=== PATIENT | male | born 1930 | race Caucasian/White ===

== ENCOUNTER 2016-07-14 16:58 | Emergency (ER) | payer OTHER ==
--- NOTE | 2016-07-14 19:47 | ED NURSING NOTES ---
Clinical Report - Nurses [place] [address] [place] [address] 07/14/2016 16:59 [id number] Triage time 17:17. Acuity: LEVEL 3. Chief Complaint: FATIGUE (AGITATED after 2 BM's today). DUANE COMA SCORE: Duane Coma Scale: 15- eyes open spontaneously (4); best verbal response- oriented x 4 (5); best motor response- obeys commands (6). --17:31 Tayler Norris R.N. 17:17 07/14/16. BP: 140/86. HR: 91. RR: 18. O2 saturation: 96%. Pain level now: 4/10. --17:31 Tayler Norris R.N. 17:07/14/16. Temp: 97.2 F (oral). --23:55 Maury Wise R.N. Weight: 74.8 kg stated. Height/Length: 71 inches Per Patient. BMI: 23. --17:23 Tayler Norris R.N. Medications Acetaminophen Oral 325 mg, daily. --17:26 Tayler Norris R.N. Cholecalciferol Oral (Tablet 1000 unit) 2 tablets, daily. --17:26 Tayler Norris R.N. Finasteride Oral (Tablet 5 mg) 1 tablet, daily. --17:27 Tayler Norris R.N. Hydrochlorothiazide Oral 25 mg, daily. --17:27 Tayler Norris R.N. Magnesium Oral 27 mg, daily. --17:28 Tayler Norris R.N. Warfarin Sodium Oral 7.5 mg, daily. --17:28 Tayler Norris R.N. Amiodarone HCL Oral (Tablet 200 mg), daily. --17:29 Tayler Norris R.N. Lisinopril Oral 2.5 mg, daily. --17:30 Tayler Norris R.N. Metoprolol Succinate ER Oral (Tablet Extended Release 24 Hour 50 mg), bid. --17:30 Tayler Norris R.N. Medication/allergy information source: other. --17:31 Tayler Norris R.N. Allergies No Known Drug Allergy. --17:19 Tayler Norris R.N. History Arrived by private vehicle. Historian: patient. Accompanied by friend. Primary physician (Moe). This started today. Onset. (at 1400). ( denies pain). SOCIAL HX: Smoker- current status unknown (no). No alcohol use or drug use. LEARNING NEEDS ASSESSMENT: The learning needs assessment revealed no barriers. FALL RISK ASSESSMENT: Fall risk assessment completed. Risk factors identified include patient age greater than 65 years and impairment of mobility. FUNCTIONAL ASSESSMENT: Functional assessment performed: requires assistance with the activities of daily living; uses walker- this mobility impairment is an ongoing problem. lives alone. --17:31 Tayler Norris R.N. PROBLEMS: Anemia. Abnormal Liver Function Test. Anxiety Reaction. Leukocytosis. Near Syncope. Ventricular Tachycardia. Hypomagnesemia. Dehydration. Leukemia. Atrial Fibrillation. URI. Pharyngitis. Chronic lymphoid leukemia, disease. Benign Prostatic Hypertrophy. Hypertension. Congestive Heart Failure. --17:20 Tayler Norris R.N. Hypoglycemia [RuleOut]. --17:20 Tayler Norris R.N. ADDITIONAL SURGERIES: Hernia Repair. --17:20 Tayler Norris R.N. Assessment GENERAL / NEURO / PSYCH: Alert. Oriented X 4. Appears in no acute distress. Patient appears calm and cooperative. RESPIRATORY: Respirations not labored. SKIN: Skin is warm and dry. --17:31 Tayler Norris R.N. Interventions ID band on patient. To waiting room. --17:31 Tayler Norris R.N. PHYSICAL ASSESSMENT Ambulatory to room. GENERAL / NEURO / PSYCH: Alert. Oriented X 4. HEENT: No facial asymmetry noted. Mucous membranes are pink. RESPIRATORY: Respirations not labored. Wheezing present. CVS: Cardiac rhythm: atrial fibrillation. GI / : Abdominal distention (abominal hernia (chronic)). SKIN: Skin intact. Skin is warm and dry. Normal skin turgor. --18:06 Maury Wise R.N. NURSING PROGRESS NOTES color television console monitor, pulse oximeter and NIBP monitor placed on patient; color television console monitor- Lead II and V1; monitor alarms on. Patient gowned. Patient identifiers checked. Call light placed in reach. Side rails up x 2. Patient ready for evaluation- chart flagged and ED physician notified. --18:06 Maury Wise R.N. EKG time: (18:05). EKG was performed by a tech and shown to the ED physician. --18:35 DeangeloRahul mahoneyon 18:55 07/14/2016 Site #1 started via IV in the right forearm with an 20g angiocath, with aseptic technique and good blood return; one attempt. Blood drawn: rainbow set. Labeled in the presence of the patient and sent to the lab. Saline lock flushed with 10 mL saline. --18:55 Darinel Robles R.N. 19:00 07/14/16. Patient ID band checked for patient name, birthdate and medical record number: patient confirmed. Instructions provided to collect clean catch urine and patient verbalized understanding. Clean catch urine collected with return of yellow-colored clear urine; odor is normal; sample sent to lab for urinalysis and culture. Specimen labeled in the presence of the patient. --19:08 Maury Wise R.N. 19:30 07/14/16. BP: 128/66. HR: 75. RR: 16. O2 saturation: 97% on room air. Pain level now: 0/10. --23:54 Maury Wise R.N. DISPOSITION / DISCHARGE 19:55 07/14/16. BP: 101/76. HR: 76. RR: 16. O2 saturation: 97% on room air. Temp: 98.7 F (oral). Pain level now: 0/10. --23:50 Maury Wise R.N. Departure time: 2004. --23:50 Maury Wise R.N. 20:05. No learning barriers present. Discharge instructions provided and reviewed with the patient. Reviewed medication(s) (contiue your usual medications. Prescription given to pt). Reviewed referral to family practice for followup. Family and construction safety consultant verbalized understanding. Written instructions provided in Mongolian. The patient was discharged by the physician. He was discharged home and accompanied by construction safety consultant. He left the Emergency Department ambulatory and via private vehicle. [employer] Inker Machine driving. --23:52 Maury Wise R.N. Locked/Released at 07/14/2016 23:56 by Maury Wise R.N.
--- NOTE | 2016-07-14 19:47 | ED ORDER SUMMARY ---
..... Patient: FRANCISCA CARRANZA OrderSheet [facility] VisitID: [id number] [place], [place] [id number] 86y, M Registration Date/Time: 07/14/2016 ORDER SHEET Weight: 74.8 kg (stated) Allergies: No Known Drug Allergy GENERAL ORDERS: Chest 1V Urgent (18:33 07/14/2016 Aura Suazo) (Ack 18:35 LNations ER Tech1) (18:48 LNations ER Tech1) Bolt Loader (Continuous) (near syncope) (18:33 07/14/2016 Aura Suazo) (Ack 18:35 LNations ER Tech1) (18:55 LWhalen R.N.) CBC w Diff Urgent (18:07/14/2016 Aura Suazo) (Ack 18:35 LNations ER Tech1) (18:55 LWhalen R.N.) CMP Urgent (18:07/14/2016 Aura Suazo) (Ack 18:35 LNations ER Tech1) (18:55 LWhalen R.N.) UA-Culture if indicated Urgent (18:33 07/14/2016 Aura Suazo) (Ack 18:35 LNations ER Tech1) (19:07 omanelli R.N.) PT with INR Urgent (18:07/14/2016 Aura Suazo) (Ack 18:35 LNations ER Tech1) (18:55 LWhalen R.N.) Troponin-I Urgent (18:07/14/2016 Aura Suazo) (Ack 18:35 LNations ER Tech1) (18:55 LWhalen R.N.) TSH Urgent (18:33 07/14/2016 Aura Suazo) (Ack 18:35 LNations ER Tech1) (18:55 LWhalen R.N.) Pulse oximeter (18:33 07/14/2016 Aura Suazo) (Ack 18:35 LNations ER Tech1) (18:55 LWhalen R.N.) EKG - ER Stat (18:07/14/2016 Aura Suazo) (Ack 18:35 LNations ER Tech1) (18:35 LTapper) MEDICATION ORDERS: IV FLUIDS: IV Saline Lock (18:33 07/14/2016 Aura Suazo) (18:55 Ryan Molina) ORDER SHEET NOTES: [Electronically signed by Maury Wise R.N. (23:56 07/14/2016)] [Electronically signed by Jamel Alcazar Dr. (03:06 07/22/2016)] [Electronically locked/signed by Maury Wise R.N. (23:56 07/14/2016)]
--- NOTE | 2016-07-14 19:47 | ED CLINICAL REPORT ---
Clinical Report - Physicians/Mid Levels [facility] [address] [place] [address] 07/14/2016 16:59 Patient: FRANCISCA CARRANZA Arrived- By private vehicle. Historian- patient. HISTORY OF PRESENT ILLNESS Is no longer unconscious. He has recovered. Chief Complaint: NEAR-SYNCOPE. This occurred today. It was abrupt in onset and has been intermittent. Patient was last known well (around noon today). Event was not witnessed. The patient had preceding symptoms of light-headedness. The event occurred during exertion (having large bowel movement). The patient felt faint. The episode lasted hours. No injuries noted. He currently has generalized weakness. (uses hands to measure out the size of the bowel movement. Describes a 20 x 10 cm sized BM. reports no shortness of breath). Similar symptoms previously: None. Recent medical care: Not recently seen/assessed. REVIEW OF SYSTEMS No headache, chest pain, abdominal pain, vomiting or diarrhea. No black stools, numbness, bloody stools, fever or skin rash. All systems otherwise negative, except as recorded above. PAST HISTORY See nurses notes. SOCIAL HISTORY Never smoker. No alcohol use or drug use. No recent travel. Is a local resident. ADDITIONAL NOTES The nursing notes have been reviewed. PHYSICAL EXAM Vital Signs: 07/14/2016 17:17 BP: 140/86. HR: 91. RR: 18. O2 saturation: 96%. Pain level now: 4/10. Blood pressure normal. Oxygen saturation normal. Appearance: Alert. No acute distress. Eyes: Pupils equal, round and reactive to light. No nystagmus. Extraocular movements normal. ENT: Normal ENT inspection. TM's normal. Moist mucous membranes. Pharynx normal. Neck: Normal inspection. Neck supple. CVS: Normal heart rate and rhythm. Heart sounds normal. Pulses normal. Respiratory: No respiratory distress. Breath sounds normal. Abdomen: Soft and nontender. No organomegaly. Skin: Skin warm and dry. Normal skin color. No rash. Normal skin turgor. Extremities: Extremities exhibit normal ROM. No lower extremity edema. Neuro: Alert. Oriented X 3. Mood/affect normal. Cranial nerves normal (as tested). No cerebellar findings. No motor deficit. No sensory deficit. Reflexes normal. LABS, X-RAYS, AND EKG EKG: EKG time: (1804). No acute ischemia. Rate: 75. Atrial fibrillation. Abnormal P waves. RBBB. Normal ST and T waves. Prolonged QT (472). Prolonged QTc (527). EKG unchanged when compared with prior EKG. The study has been interpreted contemporaneously. The study has been independently viewed by me. The EKG appears to be a good tracing. Interpretation time: 1809. Chest X-ray: Normal lung markings present. Normal heart size. Mediastinum normal. No infiltrate. No fracture. No pneumothorax. (elevated right hemidiaphragm. Unchanged from prior x-ray noted on April 17, 2016.). Views: PA. The X-rays were independently viewed by me and interpreted contemporaneously by me. Laboratory Tests: UA-Culture if indicated: (LANDON: 07/14/2016 19:05) ( [facility] 07/14/2016 19:27) Final results Test Result Flag Units (Reference) URINE COLOR YELLOW URINE APPEARANCE CLEAR URINE GLUCOSE NEGATIVE (NEGATIVE) URINE BILIRUBIN NEGATIVE (NEGATIVE) URINE KETONE NEGATIVE (NEGATIVE) URINE SPECIFIC GRAVITY 1.010 (1.010-1.030) URINE PH 7.0 (5.0-8.0) URINE PROTEIN NEGATIVE (NEGATIVE) URINE UROBILINOGEN 0.2 EU/dL (0.2-1.0) URINE NITRITE NEGATIVE (NEGATIVE) URINE BLOOD NEGATIVE (NEGATIVE) URINE LEUK ESTERASE NEGATIVE (NEGATIVE) URINE RBC NONE SEEN rbc/hpf (0-1) URINE WBC RARE wbc/hpf (0-1) URINE EPITHELIAL CELLS RARE EPI/hpf (0-5) URINE BACTERIA NONE SEEN (NONE SEEN) URINE COMMENT CULT NOT INDICATED URINE CULTURES ARE SET-UP BASED ON THE FOLLOWING CRITERIA:POSITIVE NITRITEPOSITIVE LEUKOCYTE ESTERASEGREATER THAN 10 WHITE BLOOD CELLSMODERATE (2+) OR GREATER BACTERIA CBC w Diff: ([place]: 07/14/2016 18:50) ( [facility] 07/14[facility] 19:10) IP Test Result Flag Units (Reference) WHITE BLOOD COUNT 13.5 H K/uL (4.5-11.5) RED BLOOD COUNT 4.24 L M/uL (4.50-5.90) HEMOGLOBIN 13.1 L gm/dL (13.5-17.5) HEMATOCRIT 40.4 L % (41.0-53.0) MEAN CELL VOLUME 95 fL (80-100) MEAN CORPUSCULAR HGB 31 pg (26-34) MEAN CORPUSCULAR HGB CONC 33 g/dL (31-37) RED CELL DISTRIBUTION WIDTH 14.9 H % (11.6-14.8) PLATELET COUNT 244 K/uL (150-400) PT with INR: (LANDON: 07/14/2016 18:50) ( [facility] 07/14/2016 19:24) Final results Test Result Flag Units (Reference) INR 2.9 H (0.8-1.2) Low Intensity Therapy: INR 1.5-2.0 PT range 18.5-23.1Mod.Intensity Therapy: INR 2.0-3.0 PT range 23.1-31.5High Intensity Therapy: INR 2.5-3.5 PT range 27.4-35.5High Intensity Therapy 2: INR 3.0-4.0 PT range 31.5-39.3 CMP: (LANDON: 07/14/2016 18:50) ( [facility] 07/14/2016 19:31) Final results Test Result Flag Units (Reference) GLUCOSE 104 mg/dL (70-110) BUN 21 H mg/dL (7-18) CREATININE 1.1 mg/dL (0.6-1.3) Estimated GFR >60 mL/min Estimated GFR- >60 mL/min Note: Persistent reduction over 3 months in eGFR<60 mL/min/1.73 m2 defines CKD. Patients with eGFR values>=60 mL/min/1.73 m2 may also have CKD if evidence ofpersistent proteinuria. Additional information may be foundat www.kidney.org. SODIUM 137 mmol/L (136-145) POTASSIUM 4.0 mmol/L (3.5-5.1) CHLORIDE 100 mmol/L (98-107) CARBON DIOXIDE 30 mmol/L (21-32) CALCIUM 8.2 L mg/dL (8.5-10.1) TOTAL PROTEIN 6.5 g/dL (6.4-8.2) ALBUMIN 3.4 g/dL (3.3-5.0) BILIRUBIN, TOTAL 0.9 mg/dL (0.0-1.0) ALKALINE PHOSPHATASE 75 U/L (46-116) AST (SGOT) 45 H U/L (15-37) ALT (SGPT) 65 U/L (12-78) TROPONIN I <0.05 L ng/mL (0.00-1.5) TROPONIN REFERENCE RANGE:<0.1 NEGATIVE0.1-1.5 INDETERMINANT>1.5 POSITIVE THYROID STIMULATING HORMONE 3.360 uIU/mL (0.30-3.74) . PROGRESS AND PROCEDURES Course of Care: the patient is a pleasant 86-year-old male with past medical history significant for CLL presenting for evaluation of what he describes as a near syncopal event. Likely vasovagal in nature as the patient was having a large bowel movement when this happened. Patient reports that he's been having some bowel problems for the past 2 years off-and-on. Patient reports that the last bowel movement prior to today was about 2 days ago. Patient voiced no other symptoms such as a shortness of breath, cough, nausea, vomiting, or focal weakness. Patient will be evaluated with the [place] syncopal be role. Prior EKG was noted on his last visit. We will compare the prior EKG to today's EKG. Patient is otherwise resting in bed and in no acute distress. Patient is nontoxic. Workup does not show any acute abnormalities. Chest x-ray is unchanged with a elevated right-sided hemidiaphragm. No consolidations noted. EKG is unchanged from prior. No signs of urinary tract infection. Blood count is otherwise unremarkable. Patient has a history of CLL. This was noted on patient's complete blood cell count. Electrolytes otherwise unremarkable. Because of the patient's presenting history and sequence of events, feel the patient had a vasovagal syncopal be. Of note, troponin is also negative. Troponin was obtained approximately 8 hours after initial onset of symptoms. Patient is also started to feel better. In addition, patient has not had any shortness of breath or chest pain. The patient had acute myocardial infarction or pulmonary embolism. Do not feel patient is septic at this time. Conservative management will be sought with stool softeners and follow up with his primary care doctor. Had long discussion with his his situation at home. Patient reports that he does live at home however has a niece that can check up on him. Patient also goes into how he was a in the [place] war her and had visited [place]. We discussed Heritage and a [place]ran culture. Patient is in good spirits. Do not fill patient is admitted hospital or require further emergency department workup/evaluation. discussed the patient workup, diagnosis, home care, follow-up, and return precautions. All questions answered. The patient expressed understanding of these instructions and was agreeable to them. Disposition: Discharged. Condition: good. CLINICAL IMPRESSION Near syncope .12 lead EKG performed. 07/14/2016 17:17 BP: 140/86. HR: 91. RR: 18. O2 saturation: 96%. Pain level now: 4/10. Blood pressure normal. Oxygen saturation normal. Constipation (acute). INSTRUCTIONS Warnings: GENERAL WARNINGS: Return or contact your physician immediately if your condition worsens or changes unexpectedly, if not improving as expected, or if other problems arise. SPECIFICALLY, return if you develop chest pain, fluttering sensation in your chest, lightheadedness, fainting, numbness, weakness or extreme fatigue. Prescription Medications: Miralax: take 1 measuring cupful supplied mixed in 8 ounces juice at bedtime as needed for constipation. Dispense twenty-six (26) ounce bottle. No refills. Substitution is permissible. Follow-up: Return to the emergency department as needed. Follow up with your doctor in three days. Reason for referral: recheck today's concerns. Summary of care provided to patient via paper. Screening today revealed the patient's blood pressure to be in the normal range. The patient should follow up with a primary care provider for blood pressure management. Understanding of the discharge instructions verbalized by patient. (Electronically signed by Jamel Alcazar Dr. 07/22/2016 3:06)
--- NOTE | 2016-07-14 19:47 | ED NURSING NOTES ---
Clinical Report - Nurses [place] [address] [place] [address] 07/14/2016 16:59 [id number] Triage time 17:17. Acuity: LEVEL 3. Chief Complaint: FATIGUE (AGITATED after 2 BM's today). DUANE COMA SCORE: Duane Coma Scale: 15- eyes open spontaneously (4); best verbal response- oriented x 4 (5); best motor response- obeys commands (6). --17:31 Tayler Norris R.N. 17:17 07/14/16. BP: 140/86. HR: 91. RR: 18. O2 saturation: 96%. Pain level now: 4/10. --17:31 Tayler Norris R.N. 17:07/14/16. Temp: 97.2 F (oral). --23:55 Maury Wise R.N. Weight: 74.8 kg stated. Height/Length: 71 inches Per Patient. BMI: 23. --17:23 Tayler Norris R.N. Medications Acetaminophen Oral 325 mg, daily. --17:26 Tayler Norris R.N. Cholecalciferol Oral (Tablet 1000 unit) 2 tablets, daily. --17:26 Tayler Norris R.N. Finasteride Oral (Tablet 5 mg) 1 tablet, daily. --17:27 Tayler Norris R.N. Hydrochlorothiazide Oral 25 mg, daily. --17:27 Tayler Norris R.N. Magnesium Oral 27 mg, daily. --17:28 Tayler Norris R.N. Warfarin Sodium Oral 7.5 mg, daily. --17:28 Tayler Norris R.N. Amiodarone HCL Oral (Tablet 200 mg), daily. --17:29 Tayler Norris R.N. Lisinopril Oral 2.5 mg, daily. --17:30 Tayler Norris R.N. Metoprolol Succinate ER Oral (Tablet Extended Release 24 Hour 50 mg), bid. --17:30 Tayler Norris R.N. Medication/allergy information source: other. --17:31 Tayler Norris R.N. Allergies No Known Drug Allergy. --17:19 Tayler Norris R.N. History Arrived by private vehicle. Historian: patient. Accompanied by friend. Primary physician (Moe). This started today. Onset. (at 1400). ( denies pain). SOCIAL HX: Smoker- current status unknown (no). No alcohol use or drug use. LEARNING NEEDS ASSESSMENT: The learning needs assessment revealed no barriers. FALL RISK ASSESSMENT: Fall risk assessment completed. Risk factors identified include patient age greater than 65 years and impairment of mobility. FUNCTIONAL ASSESSMENT: Functional assessment performed: requires assistance with the activities of daily living; uses walker- this mobility impairment is an ongoing problem. lives alone. --17:31 Tayler Norris R.N. PROBLEMS: Anemia. Abnormal Liver Function Test. Anxiety Reaction. Leukocytosis. Near Syncope. Ventricular Tachycardia. Hypomagnesemia. Dehydration. Leukemia. Atrial Fibrillation. URI. Pharyngitis. Chronic lymphoid leukemia, disease. Benign Prostatic Hypertrophy. Hypertension. Congestive Heart Failure. --17:20 Tayler Norris R.N. Hypoglycemia [RuleOut]. --17:20 Tayler Norris R.N. ADDITIONAL SURGERIES: Hernia Repair. --17:20 Tayler Norris R.N. Assessment GENERAL / NEURO / PSYCH: Alert. Oriented X 4. Appears in no acute distress. Patient appears calm and cooperative. RESPIRATORY: Respirations not labored. SKIN: Skin is warm and dry. --17:31 Tayler Norris R.N. Interventions ID band on patient. To waiting room. --17:31 Tayler Norris R.N. PHYSICAL ASSESSMENT Ambulatory to room. GENERAL / NEURO / PSYCH: Alert. Oriented X 4. HEENT: No facial asymmetry noted. Mucous membranes are pink. RESPIRATORY: Respirations not labored. Wheezing present. CVS: Cardiac rhythm: atrial fibrillation. GI / : Abdominal distention (abominal hernia (chronic)). SKIN: Skin intact. Skin is warm and dry. Normal skin turgor. --18:06 Maury Wsie R.N. NURSING PROGRESS NOTES cash applications manager, pulse oximeter and NIBP monitor placed on patient; manager cardiac cath- Lead II and V1; monitor alarms on. Patient gowned. Patient identifiers checked. Call light placed in reach. Side rails up x 2. Patient ready for evaluation- chart flagged and ED physician notified. --18:06 Maury Wise R.N. EKG time: (18:05). EKG was performed by a tech and shown to the ED physician. --18:35 DeangeloRahul mahoneyon 18:55 07/14/2016 Site #1 started via IV in the right forearm with an 20g angiocath, with aseptic technique and good blood return; one attempt. Blood drawn: rainbow set. Labeled in the presence of the patient and sent to the lab. Saline lock flushed with 10 mL saline. --18:55 Darinel Robles R.N. 19:00 07/14/16. Patient ID band checked for patient name, birthdate and medical record number: patient confirmed. Instructions provided to collect clean catch urine and patient verbalized understanding. Clean catch urine collected with return of yellow-colored clear urine; odor is normal; sample sent to lab for urinalysis and culture. Specimen labeled in the presence of the patient. --19:08 Maury Wise R.N. 19:30 07/14/16. BP: 128/66. HR: 75. RR: 16. O2 saturation: 97% on room air. Pain level now: 0/10. --23:54 Maury Wise R.N. DISPOSITION / DISCHARGE 19:55 07/14/16. BP: 101/76. HR: 76. RR: 16. O2 saturation: 97% on room air. Temp: 98.7 F (oral). Pain level now: 0/10. --23:50 Maury Wise R.N. Departure time: 2004. --23:50 Maury Wise R.N. 20:05. No learning barriers present. Discharge instructions provided and reviewed with the patient. Reviewed medication(s) (contiue your usual medications. Prescription given to pt). Reviewed referral to family practice for followup. Family and rag grader verbalized understanding. Written instructions provided in Syriac. The patient was discharged by the physician. He was discharged home and accompanied by rag grader. He left the Emergency Department ambulatory and via private vehicle. Tug Master driving. --23:52 Maury Wise R.N. Locked/Released at 07/14/2016 23:56 by Maury Wise R.N.
--- NOTE | 2016-07-14 19:47 | ED ORDER SUMMARY ---
..... Patient: FRANCISCA CARRANZA OrderSheet [facility] VisitID: [id number] [place], [place] [id number] 86y, M Registration Date/Time: 07/14/2016 ORDER SHEET Weight: 74.8 kg (stated) Allergies: No Known Drug Allergy GENERAL ORDERS: Chest 1V Urgent (18:33 07/14/2016 Auar Suazo) (Ack 18:35 LNations ER Tech1) (18:48 LNations ER Tech1) Activities Counselor (Continuous) (near syncope) (18:33 07/14/2016 Aura Suazo) (Ack 18:35 LNations ER Tech1) (18:55 LWhalen R.N.) CBC w Diff Urgent (18:07/14/2016 Aura Suazo) (Ack 18:35 LNations ER Tech1) (18:55 LWhalen R.N.) CMP Urgent (18:07/14/2016 Aura Suazo) (Ack 18:35 LNations ER Tech1) (18:55 LWhalen R.N.) UA-Culture if indicated Urgent (18:33 07/14/2016 Aura Suazo) (Ack 18:35 LNations ER Tech1) (19:07 omanelli R.N.) PT with INR Urgent (18:07/14/2016 Aura Suazo) (Ack 18:35 LNations ER Tech1) (18:55 LWhalen R.N.) Troponin-I Urgent (18:07/14/2016 Aura Suazo) (Ack 18:35 LNations ER Tech1) (18:55 LWhalen R.N.) TSH Urgent (18:33 07/14/2016 Aura Suazo) (Ack 18:35 LNations ER Tech1) (18:55 LWhalen R.N.) Pulse oximeter (18:33 07/14/2016 Aura Suazo) (Ack 18:35 LNations ER Tech1) (18:55 LWhalen R.N.) EKG - ER Stat (18:07/14/2016 Aura Suazo) (Ack 18:35 LNations ER Tech1) (18:35 LTapper) MEDICATION ORDERS: IV FLUIDS: IV Saline Lock (18:33 07/14/2016 Aura Suazo) (18:55 Ryan Molina) ORDER SHEET NOTES: [Electronically signed by Maury Wise R.N. (23:56 07/14/2016)] [Electronically signed by Jamel Alcazar Dr. (03:06 07/22/2016)] [Electronically locked/signed by Maury Wise R.N. (23:56 07/14/2016)]
--- NOTE | 2016-07-14 22:28 | DIAGNOSTIC IMAGING REPORT ---
PROCEDURE: XR CHEST 1 VIEW INDICATION: NEAR SYNCOPE TECHNIQUE: Single view chest. 1850 hours COMPARISON: 04/17/2016 FINDINGS: Probably top normal sized heart with right cardiac border obscured by chronic right hemidiaphragm elevation. Atelectatic changes at the right lung base and scarring at the left base. No central vascular congestion. The visible lung escobar are otherwise clear without new consolidation. No pneumothorax. Intact osseous structures. IMPRESSION: 1. No acute process. 2. 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
--- NOTE | 2016-07-22 03:07 | ED MAR SUMMARY ---
..... Medication Administration Record [facility] [address] [place], [place] [id number] Patient: FRANCISCA CARRANZA Visit ID: [id number] 86y, M Weight: 74.8 kg Height/Length: 71 in BMI: 23 ALLERGIES: No Known Drug Allergy
--- NOTE | 2016-07-22 03:07 | ED MED RECONCILIATION SUMMARY ---
Patient: FRANCISCA CARRANZA Medication Reconciliation Report [facility] VisitID: [id number] [address] [place] [address] 86y, M Registration Date/Time: 07/14/2016 Weight: 74.8 kg Height/Length: 71 in. BMI: 23.0 ALLERGIES: No Known Drug Allergy The patient's Home Medications are listed below: THE FOLLOWING MEDICATIONS NEED TO BE RECONCILED: Acetaminophen Oral 325 mg, daily Amiodarone HCL Oral (200 mg), daily Cholecalciferol Oral (1000 unit) 2 tablets, daily Finasteride Oral (5 mg) 1 tablet, daily Hydrochlorothiazide Oral 25 mg, daily Lisinopril Oral 2.5 mg, daily Magnesium Oral 27 mg, daily Metoprolol Succinate ER Oral (50 mg), bid Warfarin Sodium Oral 7.5 mg, daily The source(s) of the original Home Medication information: other The following Medications were given to the patient in the Emergency Department: None. The following Medications were prescribed to the patient: Miralax: take 1 measuring cupful supplied mixed in 8 ounces juice at bedtime as needed for constipation. Dispense twenty-six (26) ounce bottle. No refills. Substitution is permissible. -- Jamel Alcazar Dr.
--- NOTE | 2016-07-22 03:07 | ED DISCHARGE INSTRUCTIONS ---
Patient: FRANCISCA CARRANZA General Instructions [facility] VisitID: [id number] [address] [place] [address] 86y, M Registration Date/Time: 07/14/2016 Near syncope .12 lead EKG performed. 07/14/2016 17:17 BP: 140/86. HR: 91. RR: 18. O2 saturation: 96%. Pain level now: 4/10. Blood pressure normal. Oxygen saturation normal. Constipation (acute). INSTRUCTIONS Warnings: GENERAL WARNINGS: Return or contact your physician immediately if your condition worsens or changes unexpectedly, if not improving as expected, or if other problems arise. SPECIFICALLY, return if you develop chest pain, fluttering sensation in your chest, lightheadedness, fainting, numbness, weakness or extreme fatigue. Prescription Medications: Miralax: take 1 measuring cupful supplied mixed in 8 ounces juice at bedtime as needed for constipation. Dispense twenty-six (26) ounce bottle. No refills. Substitution is permissible. Follow-up: Return to the emergency department as needed. Follow up with your doctor in three days. Reason for referral: recheck today's concerns. Summary of care provided to patient via paper. Screening today revealed the patient's blood pressure to be in the normal range. The patient should follow up with a primary care provider for blood pressure management. Understanding of the discharge instructions verbalized by patient. ADDITIONAL INFORMATION Near-Fainting:Uncertain Cause Fainting (syncope) is a temporary loss of consciousness ("passing out"). It occurs when blood flow to the brain is reduced. Near-fainting ("near-syncope") is like fainting, but you do not fully "pass out." The common minor causes of near fainting include sudden fear, pain, emotional stress, overexertion, or quickly standing up after sitting or lying for a long time. The more serious causes for near fainting are due to either a very slow or very fast heart beat, dehydration, anemia, blood loss, problems related to the heart, or taking too much high blood pressure medicine. The exact cause of your episode is not certain. More tests may be required. Therefore, it is important that you follow up with your doctor as advised. Home Care: 1) Rest today. Resume your normal activities as soon as you are feeling back to normal. 2) If you become light-headed or dizzy, lie down right away or sit with your head between your knees. 3) Because we do not know the exact cause of your near fainting spell, another spell could occur without warning. Therefore, do not drive a car or use dangerous equipment. D o not take a bath alone (use a shower instead). Do not swim alone. You can resume these activities when your doctor says that you are no longer in danger of having a near fainting spell. 4) Stay well hydrated by drinking enough fluid each day. Follow Up with your doctor as instructed. Get Prompt Medical Attention if any of the following occur: -- Another fainting spell occurs, and it is not explained by the common causes listed above -- Chest, arm, neck, jaw, back or abdominal pain -- Shortness of breath -- Weakness, tingling or numbness in one side of the face, one arm or leg -- Slurred speech, confusion, trouble walking or seeing -- Seizure -- Blood in vomit, stools (black or red color) -- (In women) unexpected vaginal bleeding Constipation (Adult) Constipation is bowel movements that are less frequent than usual. Stools often become very hard and difficult to pass. This may lead to abdominal pain and bloating. It may also cause painful bowel movements. Constipation may be due to a diet thats low in fiber. Some medications, especially pain medications, can also cause it. Constipation may be treated with enemas, suppositories, laxatives or stool softeners. Your doctor will advise you which will work best for you. Follow the advice below to help avoid this problem in the future. Home Care Medication: Take any medicines as directed. Some laxatives are safe only for occasional use. Others can be taken on a regular basis. Talk to your doctor or pharmacist if you have questions. General Care: Prescription pain medications can cause constipation. If you are prescribed pain medications, ask the doctor whether you should also take a stool softener. A diet high in fiber with plenty of fluids helps to maintain regular, soft bowel movements. The following foods are good sources of dietary fiber: Cereals and breads: Whole grain cereal with bran, oatmeal, rolled oats, whole grain breads Fruits: All fruits (fresh and dried), raisins, prunes, apricots, berries, figs Vegetables: Any fresh vegetables, especially peas, broccoli, brussels sprouts, winter squash, green beans, cauliflower, saenz beans, carrots Other: Popcorn, brown rice Drink plenty of water when you increase the amount of fiber you eat. Follow Up with your doctor or return to this facility if symptoms do not improve in the next few days. You may require further tests or a referral to a specialist. Get Prompt Medical Attention if any of the following occur: Fever over 100.4F (38C) Failure to resume normal bowel movements Increasing abdominal or back pain Nausea or vomiting Abdominal swelling Blood in the stool Weakness, dizziness or fainting Unexpected vaginal bleeding You have been given the following additional information: Near Syncope, Unknown Constipation (Adult) (Electronically signed by Jamel Alcazar Dr. 07/22/2016 3:06)
--- NOTE | 2016-07-22 03:07 | ED MED RECONCILIATION SUMMARY ---
Patient: FRANCISCA CARRANZA Medication Reconciliation Report [facility] VisitID: [id number] [address] [place] [address] 86y, M Registration Date/Time: 07/14/2016 Weight: 74.8 kg Height/Length: 71 in. BMI: 23.0 ALLERGIES: No Known Drug Allergy The patient's Home Medications are listed below: THE FOLLOWING MEDICATIONS NEED TO BE RECONCILED: Acetaminophen Oral 325 mg, daily Amiodarone HCL Oral (200 mg), daily Cholecalciferol Oral (1000 unit) 2 tablets, daily Finasteride Oral (5 mg) 1 tablet, daily Hydrochlorothiazide Oral 25 mg, daily Lisinopril Oral 2.5 mg, daily Magnesium Oral 27 mg, daily Metoprolol Succinate ER Oral (50 mg), bid Warfarin Sodium Oral 7.5 mg, daily The source(s) of the original Home Medication information: other The following Medications were given to the patient in the Emergency Department: None. The following Medications were prescribed to the patient: Miralax: take 1 measuring cupful supplied mixed in 8 ounces juice at bedtime as needed for constipation. Dispense twenty-six (26) ounce bottle. No refills. Substitution is permissible. -- Jamel Alcazar Dr.
--- NOTE | 2016-07-22 03:07 | ED MAR SUMMARY ---
..... Medication Administration Record [facility] [address] [place], [place] [id number] Patient: FRANCISCA CARRANZA Visit ID: [id number] 86y, M Weight: 74.8 kg Height/Length: 71 in BMI: 23 ALLERGIES: No Known Drug Allergy
== END 2016-07-14 20:05 | disposition home or self-care (01) ==
LOC: ED SRH 16:58
DX: R55 Syncope and collapse (principal); K59.00 Constipation, unspecified; R53.1 Weakness
CPT/HCPCS: 90004; 90100; 90616; 91643; 93140; 94060; 95059